=== PATIENT | male | born 1960 | race Caucasian/White ===

== ENCOUNTER 2024-07-28 06:06 | Inpatient (IN) | payer OTHER, BC ==
[~2024-07-28] VITALS: Ht 175.3 cm; Wt 130.7 kg
[~2024-07-28 06:06] MED LIST: FEXO-42 PO; HYDR25TA4 PO; LOSA-535 PO; METF-489 PO; MULT-1180 PO
[2024-07-28] MEDS: TRANEXAMIC ACID 20 ML ONE (06:31)
[2024-07-28] MEDS: ROPIVACAINE 0.5% (5MG/ML) 20ML AMPULE IJ ONE ×2 (06:31→09:06)
[2024-07-28] MEDS: EPINEPHrine HCL 1 MG/1 ML AMP ONE (06:32)
[2024-07-28] MEDS: ceFAZolin 2 GM/D5W100ml 100 ML IV ONE (06:43)
[2024-07-28] MEDS ORDERED: MIDAZOLAM HCL 2MG/2ML 2ml VIAL (1mg/ml) ONE (06:45)
[2024-07-28] MEDS ORDERED: fentaNYL CITRATE 100 MCG/2 ML VL ONE ×2 (06:45→08:15)
[2024-07-28] MEDS ORDERED: PHENYLEPHRINE HCL 10 MG/ML VL ONE (07:11)
[2024-07-28 07:18] LABS: INR 1.15 (0.9-1.15); Partial Thromboplastin Time 27.2 SEC (24.5-34.5); Prothrombin Time 12.1 sec (9.3-11.8)
[2024-07-28] MEDS: CEFEPIME 1GM/ 50ML 50 ML IV ONE (08:08)
[2024-07-28] MEDS: VANCOMYCIN HCL 1000 MG VL ONE (09:02)
[2024-07-28] MEDS ORDERED: DexAMETHasone SOD PHOS 10MG/1ML VIAL INJ ONE (09:11)
--- NOTE | 2024-07-28 09:41 | DVH ---
CLINICAL INDICATION: RIGHT HIP ORIF INTRAOP TECHNIQUE: 4 radiographic views of the right hip were obtained. Comparison: None FINDINGS/IMPRESSION: Postsurgical changes from right hip arthroplasty.
--- NOTE | 2024-07-28 09:42 | DVHOP2 ---
Operative Report - 2 Report Details Date: 07/28/24 Preop Diagnosis: Right hip degenerative arthritis Postop Diagnosis: Same Surgeon: Epi Yap MD Concrete Sculptor: María Elena MUNOZ Anesthesiologist: Sushila Anesthesia: Regional Drains: Tiffanie closed wound suction Implant: DonJoy origin stem size 12, plus four neck length ceramic head 36, 50 acetabular shell with flat polyethylene liner Consent: The patient was informed of the risks and benefits of the procedure. These include but are not limited to complications of anesthesia, postoperative infection, incomplete relief of symptoms, recurrence of symptoms, damage to blood vessels, nerves and tendons, deep venous thrombosis, pulmonary embolism and possible need for repeat surgery in the future. Complications: None Estimated Blood Loss: 200 cc Fluids: See anesthesia record Findings: Marked restriction in range of motion, head with denuded cartilage and eburnated bone, osteophytes Indications for Surgery: Right hip degenerative arthritis with severe pain and functional impairment despite nonoperative management Name of Procedure Performed Right total hip arthroplasty Procedure Details Procedure Details: The patient was brought to the operating room and given spinal anesthetic with adequate analgesia obtained. The patient was positioned lateral decubitus with the operative side up, stabilized with hip positioners. Axillary roll applied and lower extremities well-padded. Preop patient received IV Ancef, cefepime and IV tranexamic acid. Surgical timeout was performed verifying patient, laterality and procedure. The hip and lower extremity were prepped and draped in sterile fashion. Incision was made over the greater trochanter. Subcutaneous dissection and hemostasis were performed with Bovie and aqua mantis. I identified the fascia which was incised with Bovie and Charnley retractor inserted. I identified the gluteus medius that was split at the junction of its anterior and middle thirds with Bovie then incised off the a nterior greater trochanter. I incised the anterior gluteus minimus which was elevated off the capsule. I elevated the reflected head of the rectus. I then performed anterior capsulectomy with Bovie. I extended capsular incision posterior medially and superior laterally. The head was dislocated. Femoral neck cut was made with saw and head removed. Head diameter was calipered on the back table. I adjusted retractors to expose the acetabulum. I circumferentially removed labral tissue with Bovie. I removed foveal tissue with Bovie, curette and rongeur. I then began reaming sequentially paying attention to inclination and version as I went. I trialed which was stable so acetabular implant was brought into the field and tapped into the acetabulum with good fixation achieved. I then brought up the flat liner which was spun to make sure there was no soft tissue entrapment then tapped in and stability verified. I then brought my attention to the proximal femur. The leg was placed in the sterile bag anteriorly. I cleaned up soft tissue at the greater trochanter shoulder with Bovie. I then used a rongeur to clip the lateral neck. I then used a box osteotome, canal finder and lateralizing rasp. I sequentially broached to size 12. Calcar planer used to revise femoral neck cut. I trialed with a [0] neck length and [36] head which was fairly stable. Intraoperative AP pelvis x-ray was obtained to verify length, offset and implant size. The hip was dislocated. Neck and head trial removed. Broach was re moved. I tapped in the femoral implant with good fixation achieved. I again trialed and decided that the plus four neck length was more stable. I cleaned and dried the Briseno taper and tapped on the ceramic head. The hip was again reduced and tested for stability which was good. I irrigated with xperience. I placed a 2 grams of vancomycin in the deep and superficial wound. I repaired the minimus and medius to the anterior greater trochanter with #[5] FiberWire in running fashion . I oversewed the repair with 0 Vicryl. I repaired the fascia with #1 Ethibond interrupted [id number]. Deep subcutaneous tissue was closed with 0 Vicryl. Superficial subcutaneous tissue was closed with 2-0 Vicryl. The skin was closed with jose miguel. I then applied the Tiffanie closed wound suction. Patient tolerated the procedure well and was brought to the recovery room in stable condition. Condition Stable Disposition Still a Patient EPI YAP MD Jul 28, 2024 09:42
[2024-07-28] MEDS ORDERED: ONDANSETRON HCL 4 MG/2 ML VIAL IV PRN (09:45)
[2024-07-28 09:51] VITALS: RESP 16; O2SAT 92
[2024-07-28] MEDS ORDERED: METFORMIN HYDROCHLORIDE 500 MG PO SCH (10:00)
[2024-07-28] MEDS ORDERED: PATIENTS OWN MEDICATION (Losartan Potassium 100 MG) PO SCH (10:00)
[2024-07-28] MEDS ORDERED: ACETAMINOPHEN IV 1000 MG/100ML (10MG/ML) IV PRN (10:15)
[2024-07-28] MEDS ORDERED: MEPERIDINE HCL (25 MG/ML) 1ML VIAL IV PRN (10:15)
[2024-07-28] MEDS: ONDANSETRON HCL 4 MG/2 ML VIAL IV ONE (10:15)
[2024-07-28] MEDS ORDERED: HYDROmorphone HCL 2 MG/ML VL/or syr IV PRN (10:15)
--- NOTE | 2024-07-28 10:27 | DVH ---
CLINICAL INDICATION: postop TECHNIQUE: 1 XY PELVIS AP Comparison: None FINDINGS/IMPRESSION: : There is no evidence of acute fracture or dislocation. Soft tissues are unremarkable. Right hip arthroplasty.
[2024-07-28] MEDS ORDERED: oxyCODONE HCL 5MG TAB PO PRN (11:30)
[2024-07-28] MEDS: ceFAZolin 2 GM/D5W50ml 50 ML IV SCH (14:00)
[2024-07-28] MEDS: oxyCODONE HCL 5MG TAB PO PRN (15:13)
[2024-07-28] MEDS: hydroCHLOROthiazide 25 MG TAB PO SCH (15:14)
[2024-07-28] MEDS: ACETAMINOPHEN 325 MG TAB PO SCH (15:14)
[2024-07-28] MEDS: PREGABALIN 25 MG CAP PO SCH (15:14)
[2024-07-28] MEDS: SODIUM CHLORIDE 0.9% 1,000 ML IV SCH (15:14)
[2024-07-28] MEDS ORDERED: NITROGLYCERIN 0.4 MG SL TAB SL PRN (15:30)
[2024-07-28] MEDS ORDERED: MORPHINE SULFATE INJ 2 MG/ml SYRG IV PRN (15:30)
[2024-07-28 17:00] VITALS: BP 166/88; PULSE 83; RESP 18; TEMP 98.3; O2SAT 95
[2024-07-28 18:02] VITALS: BP 152/86; PULSE 83; RESP 18; TEMP 98.3; O2SAT 95
[2024-07-28 20:00] VITALS: RESP 16
[2024-07-28 21:00] VITALS: BP 163/86; PULSE 85; RESP 20; TEMP 98.8; O2SAT 94
[2024-07-29] VITALS (7 sets, daily range): BP systolic 157–188; BP diastolic 84–94; PULSE 67–78; RESP 17–20; TEMP 36.8; O2SAT 95–98
[2024-07-29 06:56] LABS: Chloride 105 mmol/L (98-107); Potassium 3.8 mmol/L (3.5-5.1); Sodium 140 mmol/L (136-145)
[2024-07-29 06:57] LABS: Anion Gap 10 (5-15); Calcium 9.6 mg/dL (8.7-10.4); Carbon Dioxide 25 mmol/L (20-31)
[2024-07-29 06:58] LABS: Basophils # (auto) 0 10 ^3/uL (0-0.2); Basophils % (auto) 0.1 % (0.0-2.0); Eosinophils # (auto) 0 10 ^3/uL (0-0.8); Hematocrit 35.3 % (41.0-53.0); Lymphocytes # (auto) 1.2 10 ^3/uL (0.4-5.4); Lymphocytes % (auto) 8.5 % (10.0-50.0); Mean Corpuscular Hemoglobin 30.3 pg (28.0-32.0); Mean Corpuscular Hgb Conc. 33.9 g/dL (32.0-36.0); Mean Corpuscular Volume 89.5 fL (80.0-100.0); Monocytes # (auto) 1.3 10 ^3/uL (0-1.3); Monocytes % (auto) 9.3 % (0.0-12.0); Neutrophils # (auto) 11.9 10 ^3/uL (1.6-8.6); Neutrophils % (auto) 82.1 % (37.0-80.0); Platelet Count (auto) 241 10^3/uL (140-450); Red Blood Cells 3.94 10^6/uL (4.5-5.90); Red Cell Distribution Width 13.4 % (11.8-14.3); White Blood Cell 14.4 10^3/uL (4.4-10.8)
[2024-07-29 07:02] LABS: BUN/Creatinine Ratio 14.3 (10.0-20.0); Blood Urea Nitrogen 10 mg/dL (9-23); Glucose 133 mg/dL (74-106)
[2024-07-29] MEDS: metFORMIN HYDROCHLORIDE 500 MG TAB PO SCH (10:23)
[2024-07-29] MEDS: LOSARTAN POTASSIUM 50 MG TAB PO SCH (10:23)
[2024-07-29] MEDS: APIXABAN 2.5 MG TAB PO SCH (10:24)
--- NOTE | 2024-07-29 11:39 | DVHPN2 ---
Objective Vitals Vital Signs Date Time Temp Pulse Resp B/P (MAP) Pulse Ox O2 Delivery O2 Flow Rate FiO2 07/29/24 10:24 175/94 07/29/24 08:40 98.6 67 17 97 98.6 07/29/24 08:00 Room Air* 0 21 Intake/Output Intake and Output 07/29/24 07:00 Intake Total 520 ml Output Total 625 ml Balance -105 ml Intake Oral 520 ml Output Urine Total 625 ml Medications Current Medications Medications Dose Ordered Sig/Rosie Route Start Time Stop Time Status Last Admin Dose Admin Hydrochlorothiazide 25 mg DAILY PO 07/28/24 10:00 07/29/24 10:24 25 MG Patient Own Medication 100 mg DAILY PO 07/28/24 10:00 UNV Patient Own Medication 500 mg DAILY PO 07/28/24 10:00 UNV Pregabalin 50 mg BID PO 07/28/24 10:00 07/28/24 21:59 50 MG Apixaban 2.5 mg BID PO 07/29/24 10:00 09/02/24 09:59 07/29/24 10:24 2.5 MG Sodium Chloride 1,000 ml @ 125 mls/hr Q8H IV 07/28/24 11:30 07/28/24 19:30 125 MLS/HR Acetaminophen 650 mg Q6HP PO 07/28/24 12:00 07/29/24 06:37 650 MG Ondansetron HCl 4 mg Q4HP PRN IV 07/28/24 09:45 Oxycodone HCl 5 mg Q4HP PRN PO 07/28/24 11:30 Oxycodone HCl 10 mg Q4HP PRN PO 07/28/24 11:30 07/28/24 15:13 10 MG Losartan Potassium 100 mg DAILY PO 07/29/24 10:00 07/29/24 10:23 100 MG Metformin HCl 500 mg DAILY PO 07/29/24 10:00 07/29/24 10:23 500 MG Nitroglycerin 0.4 mg Q5MINP PRN SL 07/28/24 15:30 Morphine Sulfate 2 mg Q30M PRN IV 07/28/24 15:30 Laboratory Results Laboratory Tests 07/29/24 06:03 Chemistry Test 07/29/24 06:03 Calcium Level 9.6 mg/dL (8.7-10.4) NONI BUSH MD Jul 29, 2024 11:39
--- NOTE | 2024-07-29 11:39 | DVHPN2 ---
Consult Progress Note Objective vital signs Vital Sign Date Time Temp Pulse Resp B/P (MAP) Pulse Ox O2 Delivery O2 Flow Rate FiO2 07/29/24 10:24 175/94 07/29/24 08:40 98.6 67 17 97 98.6 07/29/24 08:00 Room Air* 0 21 Total Intake and Output 07/28/24 07/28/24 07/29/24 15:00 23:00 07:00 Intake Total 100 ml 420 ml Output Total 275 ml 350 ml Balance -175 ml 70 ml medications Current Medications Medications Dose Ordered Sig/Rosie Route Start Time Stop Time Status Last Admin Dose Admin Hydrochlorothiazide 25 mg DAILY PO 07/28/24 10:00 07/29/24 10:24 25 MG Patient Own Medication 100 mg DAILY PO 07/28/24 10:00 UNV Patient Own Medication 500 mg DAILY PO 07/28/24 10:00 UNV Pregabalin 50 mg BID PO 07/28/24 10:00 07/28/24 21:59 50 MG Apixaban 2.5 mg BID PO 07/29/24 10:00 09/02/24 09:59 07/29/24 10:24 2.5 MG Sodium Chloride 1,000 ml @ 125 mls/hr Q8H IV 07/28/24 11:30 07/28/24 19:30 125 MLS/HR Acetaminophen 650 mg Q6HP PO 07/28/24 12:00 07/29/24 06:37 650 MG Ondansetron HCl 4 mg Q4HP PRN IV 07/28/24 09:45 Oxycodone HCl 5 mg Q4HP PRN PO 07/28/24 11:30 Oxycodone HCl 10 mg Q4HP PRN PO 07/28/24 11:30 07/28/24 15:13 10 MG Losartan Potassium 100 mg DAILY PO 07/29/24 10:00 07/29/24 10:23 100 MG Metformin HCl 500 mg DAILY PO 07/29/24 10:00 07/29/24 10:23 500 MG Nitroglycerin 0.4 mg Q5MINP PRN SL 07/28/24 15:30 Morphine Sulfate 2 mg Q30M PRN IV 07/28/24 15:30 laboratory and microbiology Laboratory Tests 07/29/24 06:03 Test 07/29/24 06:03 Range/Units Serum Glucose 133 H 74-106 mg/dL NONI BUSH MD Jul 29, 2024 11:39
--- NOTE | 2024-07-29 11:41 | DVHHP2 ---
History of Present Illness Reason for Visit: right total hip arthroplasty History of Present Illness DATE OF ADMISSION 07/28/2024 DATE OF SERVICE: 07/29/2024 This is a 64 years old male with past medical history of osteoarthritis of hips, was brought in by orthopedic surgeon yesterday to undergo a right total hip arthroplasty. After procedure done the patient was admitted to our service today for close observation postop. By the time I see the patient he denied any pain. He said the pain medication does help to take his pain away. Patient able to ambulate and work with physical therapy. He used walker. He walks more than 100 ft. Denied any headache, blurred vision. Denied any chest pain, mila rtness for breath. Denied any abdominal pain, constipation, diarrhea. Denied any polyuria, dysuria, or hematuria. Denied any nocturnal dyspnea or orthopnea. Patient had a slight limited range of motion on the right side of the hip due to surgery. Denied any fever or chill. Denied any bleeding. Cardiovascular: HTN Musculoskeletal: Osteoarthritis Endocrine: Diabetes Past Surgical History: None Family History: None Smoke: No ALCOHOL: rare Drugs: None Lives: with Family Review of Systems Musculoskeletal: other (Hip pain) Allergies: Coded Allergies: Penicillins (Unverified Allergy, Intermediate, Rash, 07/23/24) Medications Current Medications Medications Dose Ordered Sig/Rosie Route Start Time Stop Time Status Last Admin Dose Admin Hydrochlorothiazide 25 mg DAILY PO 07/28/24 10:00 07/29/24 10:24 25 MG Patient Own Medication 100 mg DAILY PO 07/28/24 10:00 UNV Patient Own Medication 500 mg DAILY PO 07/28/24 10:00 UNV Pregabalin 50 mg BID PO 07/28/24 10:00 07/28/24 21:59 50 MG Apixaban 2.5 mg BID PO 07/29/24 10:00 09/02/24 09:59 07/29/24 10:24 2.5 MG Sodium Chloride 1,000 ml @ 125 mls/hr Q8H IV 07/28/24 11:30 07/28/24 19:30 125 MLS/HR Acetaminophen 650 mg Q6HP PO 07/28/24 12:00 07/29/24 06:37 650 MG Ondansetron HCl 4 mg Q4HP PRN IV 07/28/24 09:45 Oxycodone HCl 5 mg Q4HP PRN PO 07/28/24 11:30 Oxycodone HCl 10 mg Q4HP PRN PO 07/28/24 11:30 07/28/24 15:13 10 MG Losartan Potassium 100 mg DAILY PO 07/29/24 10:00 07/29/24 10:23 100 MG Metformin HCl 500 mg DAILY PO 07/29/24 10:00 07/29/24 10:23 500 MG Nitroglycerin 0.4 mg Q5MINP PRN SL 07/28/24 15:30 Morphine Sulfate 2 mg Q30M PRN IV 07/28/24 15:30 Exam Vital Signs Vital Signs Date Time Temp Pulse Resp B/P (MAP) Pulse Ox O2 Delivery O2 Flow Rate FiO2 07/29/24 10:24 175/94 07/29/24 08:40 98.6 67 17 97 98.6 07/29/24 08:00 Room Air* 0 21 General Appearance: Alert, Oriented X3, Cooperative, No acute distress HEENT: Atraumatic, PERRLA, EOMI, Mucous membr. moist/pink Respiratory: Clear to auscultation, Normal air movement Cardiovascular: Regular rate, Normal S1, Normal S2, No murmurs, Gallops, Rubs Abdominal: Normal bowel sounds, Soft, No tenderness, No hepatospenomegaly Extremities: No clubbing, No cyanosis, No edema, Normal pulses, Other (Pain on the right hip side due to surgery, also limited range of motion due to pain) Neuro: Cranial nerves 3-12 NL Psych/Mental Status: Mental status NL Labs/Xrays Labs Test 07/29/24 06:03 07/28/24 07:01 07/28/24 06:47 Range/Units White Blood Count 14.4 H 4.4-10.8 10^3/uL Red Blood Count 3.94 L 4.5-5.90 10^6/uL Hemoglobin 12.0 L 13.5-17.5 g/dL Hematocrit 35.3 L 41.0-53.0 % Mean Corpuscular Volume 89.5 80.0-100.0 fL Mean Corpuscular Hemoglobin 30.3 28.0-32.0 pg Mean Corpuscular Hemoglobin Concent 33.9 32.0-36.0 g/dL Red Cell Distribution Width 13.4 11.8-14.3 % Platelet Count 241 140-450 10^3/uL Mean Platelet Volume 9.3 6.9-10.8 fL Neutrophils (%) (Auto) 82.1 H 37.0-80.0 % Lymphocytes (%) (Auto) 8.5 L 10.0-50.0 % Monocytes (%) (Auto) 9.3 0.0-12.0 % Eosinophils (%) (Auto) 0.0 0.0-7.0 % Basophils (%) (Auto) 0.1 0.0-2.0 % Neutrophils # (Auto) 11.9 H 1.6-8.6 10 ^3/uL Lymphocytes # (Auto) 1.2 0.4-5.4 10 ^3/uL Monocytes # (Auto) 1.3 0-1.3 10 ^3/uL Eosinophils # (Auto) 0 0-0.8 10 ^3/uL Basophils # (Auto) 0 0-0.2 10 ^3/uL Nucleated Red Blood Cells 0.0 % Sodium Level 140 136-145 mmol/L Potassium Level 3.8 3.5-5.1 mmol/L Chloride Level 105 98-107 mmol/L Carbon Dioxide Level 25 20-31 mmol/L Anion Gap 10 5-15 Blood Urea Nitrogen 10 9-23 mg/dL Creatinine 0.70 0.700-1.30 mg/dL Glomerular Filtration Rate Calc 102 >90 mL/min BUN/Creatinine Ratio 14.3 10.0-20.0 Serum Glucose 133 H 74-106 mg/dL Calcium Level 9.6 8.7-10.4 mg/dL POC Glucose 132 H 70-106 mg/dl Prothrombin Time 12.1 H 9.3-11.8 sec Prothrombin Time INR 1.15 0.9-1.15 Activated Partial Thromboplast Time 27.2 24.5-34.5 SEC Assessment/Plan Assessment/Plan Osteoarthritis of the right hip status post right hip arthroplasty Hypertension Diabetes type 2 Plan the patient already had hip surgery. Consult physical therapy to get the patient out of bed and ambulate. Pain control with [place] and morphine. Continuing hypertensive medication at home. Sliding scale insulin with regular insulin moderate scale. Accu-Chek q.a.c. and HS. Discharge planning per orthopedic surgeon. Plan discussed with: Patient Date of Service: Jul 29, 2024 Billing Provider: NONI BUSH MD Common Visit Codes: [id number] INP/OBS CARE (HIGH) NONI BUSH MD Jul 29, 2024 11:41
--- NOTE | 2024-07-29 16:27 | DVHDS2 ---
Discharge Summary Date of Admission Jul 28, 2024 at 15:17 Date of Discharge: Jul 29, 2024 Labs/Diagnostic Data: Laboratory Results Test 07/29/24 06:03 07/28/24 07:01 07/28/24 06:47 White Blood Count 14.4 10^3/uL (4.4-10.8) Red Blood Count 3.94 10^6/uL (4.5-5.90) Hemoglobin 12.0 g/dL (13.5-17.5) Hematocrit 35.3 % (41.0-53.0) Mean Corpuscular Volume 89.5 fL (80.0-100.0) Mean Corpuscular Hemoglobin 30.3 pg (28.0-32.0) Mean Corpuscular Hemoglobin Concent 33.9 g/dL (32.0-36.0) Red Cell Distribution Width 13.4 % (11.8-14.3) Platelet Count 241 10^3/uL (140-450) Mean Platelet Volume 9.3 fL (6.9-10.8) Neutrophils (%) (Auto) 82.1 % (37.0-80.0) Lymphocytes (%) (Auto) 8.5 % (10.0-50.0) Monocytes (%) (Auto) 9.3 % (0.0-12.0) Eosinophils (%) (Auto) 0.0 % (0.0-7.0) Basophils (%) (Auto) 0.1 % (0.0-2.0) Neutrophils # (Auto) 11.9 10 ^3/uL (1.6-8.6) Lymphocytes # (Auto) 1.2 10 ^3/uL (0.4-5.4) Monocytes # (Auto) 1.3 10 ^3/uL (0-1.3) Eosinophils # (Auto) 0 10 ^3/uL (0-0.8) Basophils # (Auto) 0 10 ^3/uL (0-0.2) Nucleated Red Blood Cells 0.0 % Sodium Level 140 mmol/L (136-145) Potassium Level 3.8 mmol/L (3.5-5.1) Chloride Level 105 mmol/L (98-107) Carbon Dioxide Level 25 mmol/L (20-31) Anion Gap 10 (5-15) Blood Urea Nitrogen 10 mg/dL (9-23) Creatinine 0.70 mg/dL (0.700-1.30) Glomerular Filtration Rate Calc 102 mL/min (>90) BUN/Creatinine Ratio 14.3 (10.0-20.0) Serum Glucose 133 mg/dL (74-106) Calcium Level 9.6 mg/dL (8.7-10.4) POC Glucose 132 mg/dl (70-106) Prothrombin Time 12.1 sec (9.3-11.8) Prothrombin Time INR 1.15 (0.9-1.15) Activated Partial Thromboplast Time 27.2 SEC (24.5-34.5) Other Laboratory Tests 07/29/24 06:03 Brief Hx & Hospital Course: Patient was brought to the hospital yesterday to undergo a right total hip arthroplasty. He tolerated the procedure well without complications and was kept overnight for postoperative observation. He has remained medically stable denying any overnight events and reports only mild postoperative hip pain that is being well managed with the help of pain medication. Patient reports that he was able to get up and walk with physical therapy with the help of his walker and was able to get down the kraus around the nurses station and back to his bed with only mild pain. Patient is otherwise feeling well denying any other complaints or concerns during my evaluation would like to go home. Condition at Discharge: Stable Final Diagnosis/Problems List Same Discharge Disposition: Home Discharge Instruct/Medications Diet: Regular Activity: See Comment Activity comment: Patient to remain weight-bearing as tolerated with the assistance of a walker Follow Up/Referral: Patient to follow up with our office in 10-14 days for his 1st postoperative evaluation. Medications: Rx sent via our outpatient EMR system Discharge Statement: "Patient was advised to return to the ER or call 911 if any headaches, dizziness, shortness of breath, chest pain, abdominal pain, bleeding, fevers, or worsening of medical condition. Patient was counseled about treatment plan, medications, possible side effects, patientverbalized understanding. All questions were answered to the best of my ability. This discharge took greater then 30 minutes in planning, reviewing documentation, counseling the patient, and discussing with other team members." ASSESSMENT ASSESSMENT Assessment Same LUPE CORONADO Jul 29, 2024 16:27
--- NOTE | 2024-07-29 16:29 | DVHPN2 ---
Progress Note - Dictate Date Seen: Jul 29, 2024 Medical Necessity Reason Pt with a Central, PICC or Fol: No Subjective Patient was lying comfortably in bed during my evaluation reports some postoperative hip pain that is being well managed with the help of pain medication. Patient reports that he was able to get up and walk with the help of physical therapy and his walker and was able to get around nurses station and back to his bed with only mild pain. Patient is otherwise feeling well denying any other complaints or concerns during my evaluation and would like to go home. vital signs Vital Sign Date Time Temp Pulse Resp B/P (MAP) Pulse Ox O2 Delivery O2 Flow Rate FiO2 07/29/24 13:00 98.2 77 17 178/89 (118) 96 98.2 07/29/24 08:00 Room Air* 0 21 Total Intake and Output 07/28/24 07/28/24 07/29/24 15:00 23:00 07:00 Intake Total 100 ml 420 ml Output Total 275 ml 350 ml Balance -175 ml 70 ml medications Current Medications Medications Dose Ordered Sig/Rosie Route Start Time Stop Time Status Last Admin Dose Admin Hydrochlorothiazide 25 mg DAILY PO 07/28/24 10:00 07/29/24 10:24 25 MG Patient Own Medication 100 mg DAILY PO 07/28/24 10:00 UNV Patient Own Medication 500 mg DAILY PO 07/28/24 10:00 UNV Pregabalin 50 mg BID PO 07/28/24 10:00 07/28/24 21:59 50 MG Apixaban 2.5 mg BID PO 07/29/24 10:00 09/02/24 09:59 07/29/24 10:24 2.5 MG Sodium Chloride 1,000 ml @ 125 mls/hr Q8H IV 07/28/24 11:30 07/28/24 19:30 125 MLS/HR Acetaminophen 650 mg Q6HP PO 07/28/24 12:00 07/29/24 13:56 650 MG Ondansetron HCl 4 mg Q4HP PRN IV 07/28/24 09:45 Oxycodone HCl 5 mg Q4HP PRN PO 07/28/24 11:30 Oxycodone HCl 10 mg Q4HP PRN PO 07/28/24 11:30 07/28/24 15:13 10 MG Losartan Potassium 100 mg DAILY PO 07/29/24 10:00 07/29/24 10:23 100 MG Metformin HCl 500 mg DAILY PO 07/29/24 10:00 07/29/24 10:23 500 MG Nitroglycerin 0.4 mg Q5MINP PRN SL 07/28/24 15:30 Morphine Sulfate 2 mg Q30M PRN IV 07/28/24 15:30 objective A&O x4 in no acute distress Hip range of motion grossly limited with pain on movement Tiffanie dressing clean, dry, intact, and maintaining suction No distal edema or calf tenderness to palpation Neurovascularly intact with cap refill less than 2 seconds laboratory and microbiology Laboratory Tests 07/29/24 06:03 Test 07/29/24 06:03 Range/Units Serum Glucose 133 H 74-106 mg/dL Assessment/Plan Patient to be discharged home and advised to remain weight-bearing as tolerated with the assistance of a walker. Also instructed the patient to follow up with our office in 10-14 days for his 1st postoperative evaluation and to maintain his dressings clean, dry, intact, and maintaining suction and to call our office if he has any questions or concerns. Rx sent via our outpatient EMR system. He understood and agreed. Plan discussed with: Patient LUPE CORONADO Jul 29, 2024 16:29
[2024-07-29] MEDS ORDERED: PROPOFOL 10 MG/ML 20 ML IV ONE (18:14)
== END 2024-07-29 18:15 | disposition home or self-care (01) | DRG 470 ==
LOC: SUR 06:06 → OVERFLOW 15:17 → TELE-WESTW 15:40
PROVIDERS: ADMIT Orthopaedic Surgery; ATTEND Internal Medicine
PROC: 0SR904Z Replacement of Right Hip Joint with Ceramic on Polyethylene Synthetic Substitute, Open Approach (ICD-10-PCS; principal; 2024-07-28 07:31)
DX: M16.11 Unilateral primary osteoarthritis, right hip (principal); I10 Essential (primary) hypertension; E11.9 Type 2 diabetes mellitus without complications; Z88.0 Allergy status to penicillin
CPT/HCPCS: 36415; 72170; 73501; 80048; 82962; 85025; 85610; 85730; 86850; 86900; 86901; 97163; A4565; G0378; J0171; J1100; J2250; J2704